=== PATIENT | female | born 1970 | race Caucasian/White ===

== ENCOUNTER 2017-03-06 16:36 | Emergency (ER) | payer MEDICAID ==
--- NOTE | 2017-03-06 17:47 | Emergency Department Record ---
History of Present Illness - General Chief Complaint: Ankle/Foot Injury Stated Complaint: LEFT FOOT PAIN Time Seen by Provider: 03/06/17 17:40 Source: Patient Mode of Arrival: Ambulatory Limitations: No limitations - History of Present Illness Initial Comments: 47 yo female presents with increasing foot pain over the last several days. No specific injury. She does stand for long hours at work. No redness. No fever. No coolness. No other new concerns. She has chronic arthritis in her knees with "bone on bone" pain. Complaint: Foot injury Onset/Timin -: Days(s) Injury: Foot: Left Type of Injury: Unknown Severity: Moderate Severity scale (1-10): 7 Improves With: Nothing Worsens With: Movement, Weight bearing Treatments Prior to Arrival: Cold therapy - Related Data Home Medications Medication Instructions Recorded Confirmed Last Taken Cetirizine HCl [24hour Allergy] 10 mg PO QD tab 02/21/17 03/06/17 03/06/17 Allergies Allergy/AdvReac Type Severity Reaction Status Date / Time prednisone Allergy Severe ANAPHYLAXIS Verified 03/06/17 17:15 acetaminophen [From Vicodin] Allergy Intermediate HIVES Verified 03/06/17 17:15 hydrocodone bitartrate Allergy Intermediate HIVES Verified 03/06/17 17:15 [From Vicodin] morphine Allergy Intermediate HIVES Verified 03/06/17 17:15 oxycodone HCl [From Percocet] Allergy Unknown PT UNSURE Verified 03/06/17 17:15 OF REACTION metformin AdvReac Mild DIARRHEA Verified 03/06/17 17:15 Travel Screening - Travel/Exposure Within Last 30 Days Have you traveled within the last 30 days?: No Review of Systems Constitutional: Denies: Chills, Fever, Malaise, Weakness Eyes: Denies: Eye discharge ENT: Denies: Congestion, Throat pain Respiratory: Denies: Cough Cardiovascular: Denies: Chest pain, Palpitations, Syncope Endocrine: Denies: Fatigue Gastrointestinal: Denies: Abdominal pain, Diarrhea, Nausea, Vomiting Genitourinary: Denies: Dysuria, Urgency Musculoskeletal: Reports: As per HPI, Arthralgia. Denies: Back pain, Neck pain Skin: Denies: Bruising, Change in color, Rash Neurological: Denies: Headache, Numbness, Vertigo, Weakness Psychiatric: Denies: Anxiety Hematological/Lymphatic: Denies: Blood Clots, Easy bleeding, Easy bruising, Swollen glands Past Medical History - SOCIAL HISTORY Smoking Status: Never smoker Alcohol Use: None Drug Use: None - RESPIRATORY Hx Respiratory Disorders: No - CARDIOVASCULAR Hx Cardio Disorders: No - NEURO Hx Neuro Disorders: No - GI Hx GI Disorders: No - Hx Genitourinary Disorders: No - ENDOCRINE Hx Endocrine Disorders: No - MUSCULOSKELETAL Hx Musculoskeletal Disorders: Yes Hx Arthritis: Yes - PSYCH Hx Psych Problems: No - HEMATOLOGY/ONCOLOGY Hx Hematology/Oncology Disorders: No Family Medical History Any Significant Family History?: Yes Hx Heart Disease: Father Physical Exam - General General Appearance: Alert, Oriented x3, Cooperative, No acute distress Limitations: No limitations - Head Head exam: Normal inspection - Eye Eye exam: Normal appearance - ENT ENT exam: Normal exam Ear exam: Normal external inspection Nasal Exam: Normal inspection Mouth exam: Normal external inspection - Neck Neck exam: Normal inspection - Cardiovascular Peripheral Pulses: 2+: Dorsalis Pedis (R) - Rectal Rectal exam: Deferred - exam: Deferred - Extremities Extremities exam: Normal inspection, Full ROM, Normal capillary refill, Tenderness (mid medial left foot). negative: Calf tenderness, Pedal edema Image of Feet: 1 - tender mid foot more on the left than the right, no warmth or redness, no swelling.intact brisk pulses - Back Back exam: Reports: Full ROM - Neurological Neurological exam: Alert, Oriented X3 - Psychiatric Psychiatric exam: Normal affect, Normal mood - Skin Skin exam: Dry, Intact, Normal color, Warm Course Vital Signs 03/06/17 17:16 Temperature 98.3 F Pulse Rate 84 Respiratory 16 Rate Blood Pressure 149/89 Pulse Ox 100 Disposition Forms: Patient Portal Access
--- NOTE | 2017-03-06 18:33 | Emergency Department Record ---
History of Present Illness - General Chief Complaint: Ankle/Foot Injury Stated Complaint: LEFT FOOT PAIN Time Seen by Provider: 03/06/17 17:40 Source: Patient Mode of Arrival: Ambulatory Limitations: No limitations - History of Present Illness Onset/Timin -: Days(s) Injury: Foot: Left Type of Injury: Unknown Severity: Moderate Severity scale (1-10): 7 Improves With: Nothing Worsens With: Movement, Weight bearing Treatments Prior to Arrival: Cold therapy - Related Data Home Medications Medication Instructions Recorded Confirmed Last Taken Cetirizine HCl [24hour Allergy] 10 mg PO QD tab 02/21/17 03/06/17 03/06/17 Allergies Allergy/AdvReac Type Severity Reaction Status Date / Time prednisone Allergy Severe ANAPHYLAXIS Verified 03/06/17 17:15 acetaminophen [From Vicodin] Allergy Intermediate HIVES Verified 03/06/17 17:15 hydrocodone bitartrate Allergy Intermediate HIVES Verified 03/06/17 17:15 [From Vicodin] morphine Allergy Intermediate HIVES Verified 03/06/17 17:15 oxycodone HCl [From Percocet] Allergy Unknown PT UNSURE Verified 03/06/17 17:15 OF REACTION metformin AdvReac Mild DIARRHEA Verified 03/06/17 17:15 Travel Screening - Travel/Exposure Within Last 30 Days Have you traveled within the last 30 days?: No Review of Systems Constitutional: Denies: Chills, Fever, Malaise, Weakness Eyes: Denies: Eye discharge ENT: Denies: Congestion, Throat pain Respiratory: Denies: Cough Cardiovascular: Denies: Chest pain, Palpitations, Syncope Endocrine: Denies: Fatigue Gastrointestinal: Denies: Abdominal pain, Diarrhea, Nausea, Vomiting Genitourinary: Denies: Dysuria, Urgency Musculoskeletal: Reports: As per HPI, Arthralgia. Denies: Back pain, Neck pain Skin: Denies: Bruising, Change in color, Rash Neurological: Denies: Headache, Numbness, Vertigo, Weakness Psychiatric: Denies: Anxiety Hematological/Lymphatic: Denies: Blood Clots, Easy bleeding, Easy bruising, Swollen glands Past Medical History - SOCIAL HISTORY Smoking Status: Never smoker Alcohol Use: None Drug Use: None - RESPIRATORY Hx Respiratory Disorders: No - CARDIOVASCULAR Hx Cardio Disorders: No - NEURO Hx Neuro Disorders: No - GI Hx GI Disorders: No - Hx Genitourinary Disorders: No - ENDOCRINE Hx Endocrine Disorders: No - MUSCULOSKELETAL Hx Musculoskeletal Disorders: Yes Hx Arthritis: Yes - PSYCH Hx Psych Problems: No - HEMATOLOGY/ONCOLOGY Hx Hematology/Oncology Disorders: No Family Medical History Any Significant Family History?: Yes Hx Heart Disease: Father Physical Exam - General Limitations: No limitations Course Vital Signs 03/06/17 17:16 Temperature 98.3 F Pulse Rate 84 Respiratory 16 Rate Blood Pressure 149/89 Pulse Ox 100 - Reevaluation(s) Reevaluation #1: No acute process on prelim XR Given her pain she will be placed in a supportive boot 03/06/17 18:33 Disposition Disposition: Discharge Clinical Impression: Left foot pain Disposition: Home, Self-Care Condition: (1) Good Instructions: Foot Sprain (ED) Additional Instructions: Rest and avoid prolonged standing the next 3 days Return if uncontrolled pain, red, warm, swollen or any new concerns Forms: Patient Portal Access Time of Disposition: 18:31
--- NOTE | 2017-03-07 14:05 | RADIOLOGY REPORT ---
EXAM: LEFT FOOT HISTORY: LEFT MID FOOT PAIN STARTING FIVE DAYS AGO. NO KNOWN INJURY. TECHNIQUE: Three views of the left foot were obtained. Comparison: None. FINDINGS: Dominant plantar calcaneal spur. Some chronic appearing bony densities about the ankle. No definite acute fracture of the left foot identified and no dislocation evident. No prominent focal soft tissue swelling. IMPRESSION: 1. PLANTAR CALCANEAL SPUR. 2. CHRONIC APPEARING BONY DENSITIES ABOUT THE ANKLE. 3. THE LEFT FOOT APPEARS OTHERWISE NEGATIVE. JOB NUMBER: [id number] [facility]
== END 2017-03-06 18:52 | disposition home or self-care (01) ==
LOC: ER 16:36
DX: M79.672 Pain in left foot (principal)
CPT/HCPCS: 99283

== ENCOUNTER 2018-08-31 11:16 | Emergency (ER) | payer MEDICAID ==
--- NOTE | 2018-08-31 11:37 | Emergency Department Record ---
History of Present Illness - General Chief Complaint: General Stated Complaint: CHECK SURGICAL SITE Time Seen by Provider: 08/31/18 11:29 Source: Patient Mode of Arrival: Ambulatory Limitations: No limitations - History of Present Illness Initial comments: The patient had skin removal surgery 3 weeks ago in [place] and now for the last 5 days or so has had some mild drainage from 2 sites on her abdominal wound area. The areas were steri stripped 5 days ago by her PCP but they did not stay on. She is having mild drainage from the wounds but no swelling, pain or erythema. Onset/Timin -: Days(s) - Related Data Previous Rx's Medication Instructions Recorded Cephalexin [Keflex] 500 mg PO QID #28 cap 08/31/18 Allergies Allergy/AdvReac Type Severity Reaction Status Date / Time prednisone Allergy Severe ANAPHYLAXIS Verified 08/31/18 11:23 acetaminophen [From Vicodin] Allergy Intermediate HIVES Verified 08/31/18 11:23 hydrocodone bitartrate Allergy Intermediate HIVES Verified 08/31/18 11:23 [From Vicodin] morphine Allergy Intermediate HIVES Verified 08/31/18 11:23 oxycodone HCl [From Percocet] Allergy Unknown PT UNSURE Verified 08/31/18 11:23 OF REACTION metformin AdvReac Mild DIARRHEA Verified 08/31/18 11:23 Travel Screening - Travel/Exposure Within Last 30 Days Have you traveled within the last 30 days?: Yes Location Detail:: [place] - Travel/Exposure Within Last Year Have you traveled outside the [place] in the last year?: Yes Location Detail:: [place] - Additonal Travel Details Have you been exposed to anyone with a communicable illness?: No - Travel Symptoms Symptom Screening: None Review of Systems Constitutional: Denies: Chills, Fever Past Medical History - SOCIAL HISTORY Smoking Status: Never smoker Alcohol Use: None Drug Use: None - RESPIRATORY Hx Respiratory Disorders: No - CARDIOVASCULAR Hx Cardio Disorders: No - NEURO Hx Neuro Disorders: No - GI Hx GI Disorders: No - Hx Genitourinary Disorders: No - ENDOCRINE Hx Endocrine Disorders: No - MUSCULOSKELETAL Hx Musculoskeletal Disorders: Yes Hx Arthritis: Yes - PSYCH Hx Psych Problems: No - HEMATOLOGY/ONCOLOGY Hx Hematology/Oncology Disorders: No Family Medical History Any Significant Family History?: Yes Hx Heart Disease: Father Physical Exam - General General Appearance: Alert, Cooperative, No acute distress - Head Head exam: Atraumatic, Normocephalic, Normal inspection - Eye Eye exam: Normal appearance - GI/Abdominal GI/Abdominal exam: Soft, Other (There is a healing lower abdominal incision from the skin removal surgery. There are 2 1 cm areas of the incision that are minimally open. There is a mild serous drainage from both open wounds. There is no surrounding tenderness, swelling, or erythema appreciated.). negative: Rebound, Rigid, Tenderness Course Vital Signs 08/31/18 11:24 Temperature 98.3 F Pulse Rate 83 Respiratory 18 Rate Blood Pressure 120/92 Pulse Ox 100 - Reevaluation(s) Reevaluation #1: I explained to the patient that she is to take Keflex as directed and to keep the wound areas clean and dry. She is to F/U with Dr. Rosario in the Specialty clinic next week and to see her PCP later this week for recheck. I also did discuss the case with Dr. Rosario and he agrees with the plan. 08/31/18 11:44 08/31/18 12:04 Disposition Disposition: Discharge Clinical Impression: Encounter for wound re-check Disposition: Home, Self-Care Condition: (2) Stable Instructions: Wound Dehiscence (ED) Additional Instructions: Please keep the areas clean and dry and wash daily. Take the Keflex as directed and see your family doctor for recheck later this week. Also see Dr. Rosario in the Specialty clinic later this week. Return to the ER for any worsening issues. Prescriptions: Cephalexin [Keflex] 500 mg PO QID #28 cap Referrals: [facility] Specialty Clinics [Provider Group] Ranjan Rosario [DOCTOR OF OSTEOPATH] - Forms: Patient Portal Access Time of Disposition: 11:47 Quality - Quality Measures Quality Measures: N/A - Blood Pressure Screening View Details: Yes Does Patient Have Any of the Following: No Blood Pressure Classification: Hypertensive Reading Systolic Measurement: 120 Diastolic Measurement: 92 Screening for High Blood Pressure: < First Hypertensive BP, F/U Documented > [ G8950] First Hypertensive Follow-up Interventions: Referral to alternative/primary care provider.
[2018-08-31] MEDS ORDERED: CEPHALEXIN 500 MG CAPSULE PO STA (11:42)
== END 2018-08-31 12:05 | disposition home or self-care (01) ==
LOC: ER 11:16
DX: L76.82 Other postprocedural complications of skin and subcutaneous tissue (principal); Y83.8 Other surgical procedures as the cause of abnormal reaction of the patient, or of later complication, without mention of misadventure at the time of the procedure
CPT/HCPCS: 99283

== ENCOUNTER 2019-08-27 14:21 | Emergency (ER) | payer SELFPAY ==
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
== END 2019-08-27 16:20 | disposition home or self-care (01) ==
LOC: ER 14:21
DX: S16.1XXA Strain of muscle, fascia and tendon at neck level, initial encounter (principal); R51 Headache; V43.62XA Car passenger injured in collision with other type car in traffic accident, initial encounter; Y92.410 Unspecified street and highway as the place of occurrence of the external cause
CPT/HCPCS: 70450; 72125; 99284